=== PATIENT | male | born 1965 ===

== ENCOUNTER 2017-02-22 20:46 | Emergency (ER) ==
[~2017-02-22] VITALS: Ht 182.9 cm; Wt 90.9 kg
[2017-02-22 21:03] VITALS: TEMP 36.7; O2SAT 96; Ht 182.9 cm; Wt 90.9 kg
--- NOTE | 2017-02-22 21:49 | EMERGENCY ROOM VISIT NOTE ---
ED Visit Note First contact with patient: 21:17 CHIEF COMPLAINT: Alcohol overdose HISTORY OF PRESENT ILLNESS: This 51-year-old male patient presents to the emergency department via ambulance for evaluation of an alcohol overdose. The patient did arrive via BLS. Apparently, he was found by police [place] to the stadium. There was noted vomit near the patient. He was awake, but drowsy upon arrival and on examination. When asked what is wrong, the patient states "I had too much to drink". Denies any drugs. He denies any chest pain, dyspnea, headache, dizziness, nausea, vomiting, diarrhea, constipation, abdominal pain, or injuries. REVIEW OF SYSTEMS: Once the patient was able to reliably answer questions a review of systems was performed with positives and pertinent negatives listed in the history of present illness. All other systems were reviewed and are negative. ALLERGIES: None MEDICATIONS: None PMH: None SOCIAL HISTORY: The patient lives with family. He denies drug, tobacco use. PHYSICAL EXAM: VITALS: Vitals are noted on the nurse's note and reviewed by myself. Vital signs stable. GENERAL: This is a 51-year-old white male, in no acute distress, nondiaphoretic , well-developed well-nourished. The patient is visibly intoxicated and drowsy. SKIN: The skin was without obvious lacerations, abrasions, or rashes. There is no tenting of the skin. Capillary reflex less than 2 seconds. HEENT: Normocephalic, atraumatic. PERRLA. EOMI. Conjunctiva with mild injection without icterus. Tympanic membranes without erythema or effusion bilaterally no hemotympanum. External auditory canals are clear. Nares patent bilaterally. No epistaxis. Oropharynx without erythema or exudate. Uvula midline. Oral mucosal moist. No lymphadenopathy. Neck is supple without cervical spine tenderness. HEART: Regular rate and rhythm without murmurs gallops or rubs. Peripheral pulses 2+. LUNGS: Clear to auscultation bilaterally without wheezes, rales or rhonchi. ABDOMEN: Positive bowel sounds x 4. Normal tympanic percussion. Soft, nontender, without masses or organomegaly. MUSCULOSKELETAL: Gross motor function of the upper and lower extremities intact. The patient has a staggering gait. NEUROLOGIC: The patient is visibly intoxicated. Once they were more sober they were alert and oriented to person place and time. EMERGENCY DEPARTMENT COURSE: I examined the patient. Conservative care measures were instituted. The patient was placed in a prone position. Aspiration precautions were instituted. The patient was placed on environmental monitoring technician and watched during the patient's stay. The patient's blood alcohol level was 323. The patient did sober up after approximately 8 hours and was able to talk, walk, and drink fluids without difficulty. The patient was given alcohol intoxication handouts. The patient was discharged home in stable condition. DIFFERENTIAL DIAGNOSIS: In the evaluation and treatment of this patient, the following differential diagnoses were considered: Hypoglycemia, Barbiturate Toxicity, Benzodiazepine Toxicity, Depression and Suicidality, Diabetic Ketoacidosis, Encephalitis, Ethylene Glycol Toxicity, Meningitis, Metabolic Acidosis, Opioid Toxicity, CVA, TIA, Intracranial Abnormality, Acute Psychosis, Amongst Others. DIAGNOSIS: Acute alcohol overdose Current/Historical Medications Unable to Obtain Active Prescriptions or Reported Meds Vital Signs Date Time Temp Pulse Resp B/P (MAP) Pulse Ox O2 Delivery O2 Flow Rate FiO2 02/23/17 05:44 86 17 137/97 97 02/23/17 05:43 137/97 02/23/17 05:31 146/96 02/23/17 05:01 128/96 02/23/17 04:41 58 98 02/23/17 04:36 58 17 95 02/23/17 04:32 02/23/17 04:06 64 92 02/23/17 04:01 108/62 02/23/17 03:36 66 15 90 02/23/17 03:31 114/64 02/23/17 03:01 118/78 02/23/17 02:50 70 17 97 02/23/17 02:31 130/91 02/23/17 02:20 80 95 02/23/17 02:01 126/87 02/23/17 01:50 76 13 95 02/23/17 01:31 126/87 02/23/17 01:20 84 96 02/23/17 01:18 84 16 144/95 94 Room Air 02/23/17 00:05 68 15 94 Room Air 02/23/17 00:00 66 14 105/77 92 02/22/17 23:31 66 14 111/82 96 Room Air 02/22/17 23:13 67 17 143/104 96 Room Air 02/22/17 22:41 76 18 144/96 96 Room Air 02/22/17 21:44 107 02/22/17 21:39 78 18 126/84 97 Room Air 02/22/17 21:03 36.7 94 18 152/100 95 Room Air 02/22/17 21:03 96 Room Air Laboratory Results Test 02/22/17 22:01 Ethyl Alcohol mg/dL 323.8 mg/dl (0-3) Departure Information Impression Primary Impression: Alcohol overdose Dispostion Home / Self-Care Condition GOOD Prescriptions Unable to Obtain Active Prescriptions or Reported Meds Patient Instructions My [facility] Additional Instructions He was seen in the emergency department today for an alcohol overdose. Please stay well hydrated and drink plenty of fluids. He may take Tylenol, 500-1000 mg every 6-8 hours as needed for pain. Do not drink any more alcohol or do any drugs. Follow-up with [facility] this week. Return to the emergency department for significant vomiting, confusion, dizziness, headache, chest pain, difficulty breathing, or other concerning symptoms. Problem Qualifiers Primary Impression: Alcohol overdose Encounter type: initial encounter Injury intent: accidental or unintentional Qualified Codes: T51.91XA - Toxic effect of unspecified alcohol , accidental (unintentional), initial encounter
[2017-02-23 05:44] VITALS: BP 137/97; PULSE 86; O2SAT 97
== END 2017-02-23 05:44 | disposition home or self-care (01) ==
LOC: EDBD 20:46 → C.EDC 20:47
DX: T51.91XA Toxic effect of unspecified alcohol, accidental (unintentional), initial encounter (principal)